=== PATIENT | female | born 1990 | race Caucasian/White ===

== ENCOUNTER 2017-11-15 21:50 | Emergency (ER) | payer OTHER ==
[~2017-11-15] VITALS: Ht 157.5 cm; Wt 63.6 kg
[~2017-11-15 21:50] MED LIST: FERROUS SULFATE65 MG PO; MOTRIN 600600 MG/TAB PO; PERCOCET 325 MG1 TA2 PO; PRENATAL1 TA1 PO; SENOKOT S 50 MG1 TAB PO
[2017-11-15 22:15] VITALS: BP 112/72; TEMP 98.9
[2017-11-15] MEDS ORDERED: ALBUTEROL0.83 MG/ML IH (23:39)
[2017-11-15 23:56] VITALS: PULSE 98
== END 2017-11-15 23:57 | disposition home or self-care (01) ==
LOC: COL.ER 21:50
DX: J98.01 Acute bronchospasm (principal)